=== PATIENT | female | born 2000 | race Caucasian/White ===

== ENCOUNTER → 2020-02-06 | Outpatient (CLI) | payer OTHER | LOC: LAB 08:06 | DX: R19.7 Diarrhea, unspecified (principal); R09.81 Nasal congestion; R43.8 Other disturbances of smell and taste; Z20.828 Contact with and (suspected) exposure to other viral communicable diseases ==

== ENCOUNTER → 2023-12-19 | Outpatient (CLI) | payer BC ==
[2023-12-19 08:41] LABS: HEMATOCRIT 39.6 % (37.0-47.0); HEMOGLOBIN 12.6 g/dL (12.5-16.0); RED BLOOD COUNT 4.26 M/mm3 (4.10-5.30); RED CELL DISTRIBUTION WIDTH 12.4 % (11.5-14.5); WHITE BLOOD COUNT 6.2 K/mm3 (4.8-10.8)
[2023-12-19 08:51] LABS: ALBUMIN 4.3 g/dL (3.5-5.0)
[2023-12-19 08:53] LABS: TOTAL PROTEIN 6.7 g/dL (6.4-8.3)
[2023-12-19 08:55] LABS: TOTAL BILIRUBIN 0.5 mg/dL (0.2-1.2)
[2023-12-19 22:27] LABS: FOLLICLE STIMULATING HORMONE 8.2 mIU/mL (()); LUTENIZING HORMONE 10.1 mIU/mL (())
== END ==
LOC: LAB 08:30
DX: N92.1 Excessive and frequent menstruation with irregular cycle (principal); R53.83 Other fatigue